=== PATIENT | female | born 1955 | race African-American/Black ===

== ENCOUNTER 2021-06-14 19:31 | Inpatient (IN) ==
[2021-06-14 20:02] LABS: Basophils % 0.2 % (0.0-0.8); Eosinophils # 0.1 10*3/uL (0.0-0.87); Eosinophils % 0.4 % (0.00-10.9); Hematocrit 33.2 VOL% (35.7-47.0); Hemoglobin 10.1 GM/DL (12.0-16.0); Immature Granulocytes % 0.5 %; Immature Granulocytes Absolute 0.09 #; Lymphocytes # 4.3 10*3/uL (1.4-4.0); Lymphocytes % 24.2 % (21.3-54.2); Mean Corpuscular HGB Conc 30.4 GM/DL (32-36); Mean Corpuscular Volume 88.1 FL (87-102); Mean Platelet Volume 9.4 FL (9.6-12.0); Monocytes % 8.4 % (1.7-12.7); Neutrophils % 66.3 % (38.7-73.9); Platelet Count 280 T/CUMM (130-400); Red Blood Count 3.77 MC/CUMM (3.8-5.5); Red Cell Distribution Width 13.7 % (9.3-17.3); White Blood Count 17.8 T/CUMM (4-12)
[2021-06-14 20:48] LABS: Albumin 2.9 G/DL (3.4-5.0); Bilirubin,Total 0.8 MG/DL (0.20-1.00); Calcium 9.1 MG/DL (8.5-10.1); Osmolality,Calculated 278.4 MOS/KG (273-304); Potassium 3.7 MMOL/L (3.5-5.1); Total Protein 6.3 G/DL (6.4-8.2)
[2021-06-14] MEDS ORDERED: DEXTROSE 50% 25 GM/50 ML SYRINGE IV ONE (21:04)
[2021-06-14] MEDS ORDERED: PANTOPRAZOLE 40 MG VIAL IV STA (21:12)
[2021-06-14] MEDS ORDERED: ONDANSETRON 4 MG/2 ML VIAL IV ONE (21:12)
[2021-06-14] MEDS ORDERED: DEXTROSE 50% 25 GM/50 ML VIAL IV STA (21:21)
[2021-06-14] MEDS ORDERED: LEVOFLOXACIN INJ 500 MG/100 ML PREMIX IV ONE (21:24)
[2021-06-15 00:32] LABS: Bilirubin,Urine Negative (Negative); Blood, Urine Negative (Negative); Glucose,Urine (UA) Negative (Negative); Ketones,Urine Negative (Negative); Nitrite,Urine Negative (Negative); Protein,Urine Negative (Negative); Urine Appearance Clear (Clear); Urine Color Yellow (Yellow); Urine Specific Gravity 1.015 (1.001-1.035); Urine Urobilinogen 0.2 eU/dL (<2.0)
[2021-06-15 00:34] LABS: Mucus,Urine Occasional /LPF (Occasional); RBC,Urine 1 /HPF (0-4); Squamous Epithelial Cell,Urine Occasional /HPF (0-10)
[2021-06-15] MEDS ORDERED: PANTOPRAZOLE 40 MG VIAL IV ONE (00:47)
[2021-06-15] MEDS ORDERED: GLUCAGON 1 MG VIAL IM PRN ×2 (00:48→00:52)
[2021-06-15] MEDS ORDERED: DEXTROSE 50% 25 GM/50 ML VIAL IV PRN (00:48)
[2021-06-15] MEDS ORDERED: ONDANSETRON 4 MG TABLET PO PRN (00:49)
[2021-06-15] MEDS ORDERED: ALBUTEROL/IPRATROPIUM 3 ML NEB RESP TX PRN (00:50)
[2021-06-15 01:33] LABS: Hematocrit 33.8 VOL% (35.7-47.0); Hemoglobin 10.4 GM/DL (12.0-16.0)
[2021-06-15 01:52] LABS: Calcium 9.4 MG/DL (8.5-10.1); Osmolality,Calculated 279.4 MOS/KG (273-304); Potassium 3.6 MMOL/L (3.5-5.1)
[2021-06-15] MEDS: DEXTROSE 10% 250 ML BAG IV PRN ×2 (02:04→05:37)
[2021-06-15] MEDS: cefTRIAXone 1,000 MG in SODIUM CHLORIDE 0.9% 100 ML IV SCH (02:45)
[2021-06-15] MEDS: AZITHROMYCIN INJ 500 MG in SODIUM CHLORIDE 0.9% 250 ML IV SCH (04:00)
[2021-06-15 04:23] LABS: Basophils % 0.2 % (0.0-0.8); Eosinophils # 0.1 10*3/uL (0.0-0.87); Eosinophils % 0.4 % (0.00-10.9); Hematocrit 29.3 VOL% (35.7-47.0); Immature Granulocytes % 0.4 %; Immature Granulocytes Absolute 0.05 #; Lymphocytes # 2.6 10*3/uL (1.4-4.0); Lymphocytes % 22.5 % (21.3-54.2); Mean Corpuscular HGB Conc 30.7 GM/DL (32-36); Mean Corpuscular Volume 88.5 FL (87-102); Mean Platelet Volume 9.4 FL (9.6-12.0); Monocytes % 9.1 % (1.7-12.7); Neutrophils % 67.4 % (38.7-73.9); Platelet Count 232 T/CUMM (130-400); Red Blood Count 3.31 MC/CUMM (3.8-5.5); Red Cell Distribution Width 13.6 % (9.3-17.3); White Blood Count 11.6 T/CUMM (4-12)
[2021-06-15] MEDS: INSULIN LISPRO 100 UNIT/ML SUBCUT SCH ×4 (05:27→23:48)
[2021-06-15] MEDS: DEXTROSE 5% NACL 0.45% 1,000 ML IV SCH ×2 (06:11→19:50)
[2021-06-15] MEDS ORDERED: MAGNESIUM SULF RIDER 2 GM/50 ML PREMIX IV ONE (09:13)
[2021-06-15 10:28] LABS: Folate 7.5 NG/ML (5.38-24.0)
[2021-06-16] MEDS: cefTRIAXone 1,000 MG in SODIUM CHLORIDE 0.9% 100 ML IV SCH (02:27)
[2021-06-16] MEDS: AZITHROMYCIN INJ 500 MG in SODIUM CHLORIDE 0.9% 250 ML IV SCH (04:05)
[2021-06-16 05:38] LABS: Basophils % 0.2 % (0.0-0.8); Eosinophils # 0.1 10*3/uL (0.0-0.87); Eosinophils % 1.6 % (0.00-10.9); Hematocrit 29.8 VOL% (35.7-47.0); Hemoglobin 9.1 GM/DL (12.0-16.0); Immature Granulocytes % 0.4 %; Immature Granulocytes Absolute 0.04 #; Lymphocytes # 3.2 10*3/uL (1.4-4.0); Lymphocytes % 35.9 % (21.3-54.2); Mean Corpuscular HGB Conc 30.5 GM/DL (32-36); Mean Platelet Volume 9.7 FL (9.6-12.0); Monocytes % 14.3 % (1.7-12.7); Neutrophils % 47.6 % (38.7-73.9); Platelet Count 214 T/CUMM (130-400); Red Blood Count 3.35 MC/CUMM (3.8-5.5); Red Cell Distribution Width 13.2 % (9.3-17.3); White Blood Count 8.9 T/CUMM (4-12)
[2021-06-16 05:47] LABS: Calcium 8.7 MG/DL (8.5-10.1); Osmolality,Calculated 283.4 MOS/KG (273-304); Potassium 3.5 MMOL/L (3.5-5.1)
[2021-06-16] MEDS: INSULIN LISPRO 100 UNIT/ML SUBCUT SCH ×3 (05:55→19:13)
[2021-06-16] MEDS: FERRIC GLUCONATE COMPLEX 125 MG in SODIUM CHLORIDE 0.9% 100 ML IV SCH (09:41)
[2021-06-16] MEDS: DEXTROSE 5% NACL 0.45% 1,000 ML IV SCH (09:42)
[2021-06-16] MEDS: DOXYCYCLINE HYCLATE 100 MG CAPSULE PO SCH (20:28)
[2021-06-17] MEDS: INSULIN LISPRO 100 UNIT/ML SUBCUT SCH ×4 (00:02→19:24)
[2021-06-17] MEDS: DEXTROSE 5% NACL 0.45% 1,000 ML IV SCH (04:04)
[2021-06-17 07:09] LABS: Basophils % 0.3 % (0.0-0.8); Eosinophils # 0.2 10*3/uL (0.0-0.87); Eosinophils % 2.4 % (0.00-10.9); Hematocrit 31.6 VOL% (35.7-47.0); Hemoglobin 9.9 GM/DL (12.0-16.0); Immature Granulocytes % 0.4 %; Immature Granulocytes Absolute 0.03 #; Lymphocytes # 2.9 10*3/uL (1.4-4.0); Lymphocytes % 39.4 % (21.3-54.2); Mean Corpuscular HGB Conc 31.3 GM/DL (32-36); Mean Corpuscular Volume 86.8 FL (87-102); Mean Platelet Volume 9.7 FL (9.6-12.0); Monocytes % 14.4 % (1.7-12.7); Neutrophils % 43.1 % (38.7-73.9); Platelet Count 237 T/CUMM (130-400); Red Blood Count 3.64 MC/CUMM (3.8-5.5); Red Cell Distribution Width 12.9 % (9.3-17.3); White Blood Count 7.4 T/CUMM (4-12)
[2021-06-17 07:38] LABS: Calcium 8.9 MG/DL (8.5-10.1); Osmolality,Calculated 278.4 MOS/KG (273-304); Potassium 2.9 MMOL/L (3.5-5.1)
[2021-06-17] MEDS ORDERED: AZITHROMYCIN 250 MG TABLET PO SCH (09:00)
[2021-06-17] MEDS: cloNIDine 0.1 MG TABLET PO SCH (10:03)
[2021-06-17] MEDS: DONEPEZIL 10 MG TABLET PO SCH (10:04)
[2021-06-17] MEDS: amLODIPine 10 MG TABLET PO SCH (10:04)
[2021-06-17] MEDS: DOXYCYCLINE HYCLATE 100 MG CAPSULE PO SCH ×2 (10:04→21:02)
[2021-06-17] MEDS: PANTOPRAZOLE 40 MG TABLET PO SCH (10:05)
[2021-06-17] MEDS: cefTRIAXone 1,000 MG in SODIUM CHLORIDE 0.9% 100 ML IV SCH (10:05)
[2021-06-17] MEDS ORDERED: POTASSIUM CHLORIDE 20 MEQ TABLET PO ONE (11:02)
[2021-06-17] MEDS: FERRIC GLUCONATE COMPLEX 125 MG in SODIUM CHLORIDE 0.9% 100 ML IV SCH (11:16)
[2021-06-17] MEDS ORDERED: MAGNESIUM SULF RIDER 2 GM/50 ML PREMIX IV ONE (13:07)
[2021-06-17] MEDS: PROPRANOLOL 120 MG PO SCH (14:07)
[2021-06-17] MEDS: POTASSIUM CHLORIDE RIDER 10 MEQ/100 ML PREMIX IV PRN ×3 (20:56→23:23)
[2021-06-17] MEDS: ATORVASTATIN 20 MG TABLET PO SCH (21:02)
[2021-06-18] MEDS: INSULIN LISPRO 100 UNIT/ML SUBCUT SCH ×4 (00:33→18:10)
[2021-06-18 05:05] LABS: Basophils % 0.3 % (0.0-0.8); Eosinophils # 0.2 10*3/uL (0.0-0.87); Eosinophils % 2.4 % (0.00-10.9); Hematocrit 30.8 VOL% (35.7-47.0); Hemoglobin 9.8 GM/DL (12.0-16.0); Immature Granulocytes % 0.3 %; Immature Granulocytes Absolute 0.02 #; Lymphocytes # 2.4 10*3/uL (1.4-4.0); Lymphocytes % 32.2 % (21.3-54.2); Mean Corpuscular HGB Conc 31.8 GM/DL (32-36); Mean Corpuscular Volume 86.3 FL (87-102); Mean Platelet Volume 9.2 FL (9.6-12.0); Monocytes % 15.3 % (1.7-12.7); Neutrophils % 49.5 % (38.7-73.9); Platelet Count 253 T/CUMM (130-400); Red Blood Count 3.57 MC/CUMM (3.8-5.5); Red Cell Distribution Width 12.9 % (9.3-17.3); White Blood Count 7.6 T/CUMM (4-12)
[2021-06-18 05:25] LABS: Calcium 8.8 MG/DL (8.5-10.1); Osmolality,Calculated 281.4 MOS/KG (273-304); Potassium 3.8 MMOL/L (3.5-5.1)
[2021-06-18] MEDS: DEXTROSE 5% NACL 0.45% 1,000 ML IV SCH ×2 (08:25→12:09)
[2021-06-18] MEDS: cefTRIAXone 1,000 MG in SODIUM CHLORIDE 0.9% 100 ML IV SCH (09:33)
[2021-06-18] MEDS: PROPRANOLOL 120 MG PO SCH (09:33)
[2021-06-18] MEDS: amLODIPine 10 MG TABLET PO SCH (09:34)
[2021-06-18] MEDS: cloNIDine 0.1 MG TABLET PO SCH (09:34)
[2021-06-18] MEDS: DONEPEZIL 10 MG TABLET PO SCH (09:34)
[2021-06-18] MEDS: DOXYCYCLINE HYCLATE 100 MG CAPSULE PO SCH ×2 (09:34→21:42)
[2021-06-18] MEDS: PANTOPRAZOLE 40 MG TABLET PO SCH (09:34)
[2021-06-18] MEDS: FERRIC GLUCONATE COMPLEX 125 MG in SODIUM CHLORIDE 0.9% 100 ML IV SCH (10:22)
[2021-06-18] MEDS: ATORVASTATIN 20 MG TABLET PO SCH (21:42)
[2021-06-19] MEDS: INSULIN LISPRO 100 UNIT/ML SUBCUT SCH ×3 (00:34→13:11)
[2021-06-19 07:10] LABS: Basophils % 0.3 % (0.0-0.8); Eosinophils # 0.2 10*3/uL (0.0-0.87); Eosinophils % 2.5 % (0.00-10.9); Hematocrit 33.7 VOL% (35.7-47.0); Hemoglobin 10.5 GM/DL (12.0-16.0); Immature Granulocytes % 0.2 %; Immature Granulocytes Absolute 0.02 #; Lymphocytes # 3.1 10*3/uL (1.4-4.0); Lymphocytes % 34.5 % (21.3-54.2); Mean Corpuscular HGB Conc 31.2 GM/DL (32-36); Mean Corpuscular Volume 85.3 FL (87-102); Mean Platelet Volume 9.8 FL (9.6-12.0); Monocytes % 12.8 % (1.7-12.7); Neutrophils % 49.7 % (38.7-73.9); Platelet Count 276 T/CUMM (130-400); Red Blood Count 3.95 MC/CUMM (3.8-5.5); Red Cell Distribution Width 13.1 % (9.3-17.3); White Blood Count 8.8 T/CUMM (4-12)
[2021-06-19 07:29] LABS: Calcium 9.3 MG/DL (8.5-10.1); Osmolality,Calculated 277.5 MOS/KG (273-304); Potassium 3.5 MMOL/L (3.5-5.1)
[2021-06-19] MEDS: cloNIDine 0.1 MG TABLET PO SCH (09:10)
[2021-06-19] MEDS: DONEPEZIL 10 MG TABLET PO SCH (09:10)
[2021-06-19] MEDS: PROPRANOLOL 120 MG PO SCH (09:10)
[2021-06-19] MEDS: DOXYCYCLINE HYCLATE 100 MG CAPSULE PO SCH (09:10)
[2021-06-19] MEDS: PANTOPRAZOLE 40 MG TABLET PO SCH (09:10)
[2021-06-19] MEDS: amLODIPine 10 MG TABLET PO SCH (09:11)
[2021-06-19] MEDS: FERRIC GLUCONATE COMPLEX 125 MG in SODIUM CHLORIDE 0.9% 100 ML IV SCH (09:11)
[2021-06-19] MEDS: cefTRIAXone 1,000 MG in SODIUM CHLORIDE 0.9% 100 ML IV SCH (10:50)
[2021-06-19 12:39] VITALS: BP 130/100
== END 2021-06-19 16:10 | disposition home or self-care (01) | DRG 195 ==
LOC: N.ED 19:31 → SUATTDRO 06-15 00:45 → N.EDINP 06-15 00:45 → N.5E 06-15 14:19
PROVIDERS: ADMIT Internal Medicine; ATTEND Internal Medicine